=== PATIENT | female | born 1960 | race Caucasian/White ===

== ENCOUNTER 2020-01-02 17:25 | Emergency (ER) | payer BC ==
[~2020-01-02] VITALS: Ht 157.5 cm; Wt 79.0 kg
--- NOTE | 2020-01-02 17:38 | NUR ---
late entry for [id number]: pt called to triage. pt prefers to wait until her daughter is back and can come in with her.
--- NOTE | 2020-01-02 17:39 | NUR ---
pt daughter still not back
[2020-01-02 17:48] VITALS: BP 144/96
[2020-01-02] MEDS ORDERED: DIPH,PERTUSS(ACELL),TET VAC/PF 0.5 ML IM-VACC ONE ×2 (18:26→18:30)
[2020-01-02] MEDS ORDERED: ACETAMINOPHEN 500 MG TABLET PO ONE (19:00)
[2020-01-02] MEDS ORDERED: ACETAMINOPHEN 500 MG TABLET ONE (19:08)
[2020-01-02] MEDS ORDERED: NEOSPORIN OINT. PKT 1 PACKET ONE (19:12)
[2020-01-02] MEDS ORDERED: BACITRACIN ZINC OINT 500U/GM, 0.9 GM TP SCH (19:30)
== END 2020-01-02 19:38 | disposition home or self-care (01) ==
LOC: ED 19:34
DX: S91.301A Unspecified open wound, right foot, initial encounter (principal); X58.XXXA Exposure to other specified factors, initial encounter; Y93.89 Activity, other specified; Y92.89 Other specified places as the place of occurrence of the external cause; Y99.8 Other external cause status
CPT/HCPCS: 90471; 90715; 99283

== ENCOUNTER 2020-02-11 18:49 | Emergency (ER) | payer BC ==
[~2020-02-11] VITALS: Ht 157.5 cm; Wt 79.0 kg
--- NOTE | 2020-02-11 19:12 | NUR ---
pt reports coming in today due to N/V/D. pt states that "they have been feeding me terrible food and its been terrible and people are just screaming so i am hiring a civil engineering teacher because this is wrong." pt is NAD, gross neuro intact, skin warm and dry. States i am having really bad abdominal pain "worse than labor pains" i believe i have food poisoning. pt placed on spo2/bp monitoring. WCTM
[2020-02-11 19:25] LABS: BASOPHILS # (AUTO) 0.08 x10^3/uL (0-0.1); BASOPHILS % (AUTO) 1 % (0-1); EOSINOPHILS # (AUTO) 0.17 x10^3/uL (0-0.4); EOSINOPHILS % (AUTO) 2 % (1-7); LYMPHOCYTES # (AUTO) 3.38 x10^3/uL (1-3.4); LYMPHOCYTES % (AUTO) 31 % (22-44); MD NO; MEAN CORPUSCULAR HEMOGLOBIN 30.4 pg (27.0-34.8); MEAN CORPUSCULAR HGB CONC 32.7 g/dL (32.4-35.8); MEAN CORPUSCULAR VOLUME 92.9 fL (80-100); MEAN PLATELET VOLUME 8.1 fL (7.4-10.4); MONOCYTES # (AUTO) 1.13 x10^3/uL (0.2-0.8); MONOCYTES % (AUTO) 10 % (2-9); NEUTROPHILS # (AUTO) 6.09 x10^3/uL (1.8-6.8); NEUTROPHILS % (AUTO) 56 % (42-75); PLATELET COUNT 368 x10^3/uL (130-400); RED CELL DISTRIBUTION WIDTH 14.8 % (9.6-15.2)
[2020-02-11] MEDS ORDERED: ONDANSETRON ODT 4 MG PO ONE (19:30)
[2020-02-11] MEDS ORDERED: ONDANSETRON ODT 4 MG ONE (19:32)
[2020-02-11 19:35] LABS: ALBUMIN 4.1 g/dL (3.4-5.0); ANION GAP 10 mmol/L (5-15); CALCIUM 9.3 mg/dL (8.5-10.1); CHLORIDE 109 mmol/L (98-107)
--- NOTE | 2020-02-11 19:35 | NUR ---
pt medicated per aug, sent to lab, pt sitting in [facility], no change in condition, wctm.
[2020-02-11 19:38] VITALS: BP 140/108
[2020-02-11 19:38] LABS: ALANINE AMINOTRANSFERASE 40 U/L (12-78); ALKALINE PHOSPHATASE 132 U/L (45-117); BILIRUBIN,TOTAL 0.6 mg/dL (0.2-1.0); CREATININE 0.98 mg/dL (0.55-1.02); TOTAL PROTEIN 7.6 g/dL (6.4-8.2)
[2020-02-11 19:49] LABS: MICROSCOPIC AUTO
--- NOTE | 2020-02-11 20:25 | NUR ---
Patient given discharge instructions and they have confirmed that they understand the instructions. Patient ambulatory with steady gait. given taxi voucher per request, nad, denies additional needs, no belongings left in room after dc.
== END 2020-02-11 20:26 | disposition home or self-care (01) ==
LOC: ED 20:23
DX: R10.84 Generalized abdominal pain (principal); R10.13 Epigastric pain; R11.2 Nausea with vomiting, unspecified; R19.7 Diarrhea, unspecified; R30.0 Dysuria; F17.210 Nicotine dependence, cigarettes, uncomplicated; Z72.9 Problem related to lifestyle, unspecified
CPT/HCPCS: 36415; 80053; 81001; 83690; 85025; 87086; 99283; Q0162; 87077